=== PATIENT | female | born 1990 | race Caucasian/White ===

== ENCOUNTER 2018-08-02 15:20 | Emergency (ER) | payer BC, MEDICAID, OTHER ==
[~2018-08-02] VITALS: Ht 157.5 cm; Wt 61.2 kg
[2018-08-02 15:33] VITALS: BP_SYST 138
--- NOTE | 2018-08-02 15:33 | NUR ---
Placed in room 7. To gown for exam. Side rails up.
--- NOTE | 2018-08-02 15:35 | NUR ---
Patient to ER via triage for evaluation of bleeding after intercourse, patient also reports hematuria. Patient states she has lower abdominal cramping/pain. Patient states her LMP was 2-3 weeks ago, patient is awake, alert and oriented in no acute distres, vital signs stable, respirations even and unlabored, skin warm and dry to touch. Patient able to ambulate to bed 7 without difficulty with slow, steady gait. Family remains at bedside, awaiting evaluation by ER MD/[employer], will continue to observe and assess.
--- NOTE | 2018-08-02 15:42 | NUR ---
Tasneem Mc ICU CLERK at bedside to evaluate patient.
[2018-08-02] MEDS: KETOROLAC TROMETHAMINE 30 MG VIAL IVP ONE (16:11)
[2018-08-02] MEDS: ONDANSETRON HCL 4 MG/2 ML VIAL IVP ONE (16:15)
--- NOTE | 2018-08-02 16:15 | NUR ---
Pelvic exam performed by Tasneem Mc EXERCISE RIDER with myself at bedside for entire examination. Patient tolerated procedure . Patient assisted to position of comfort after examination.
[2018-08-02] MEDS: NACL 0.9% 1,000 ML IV ONE (16:19)
--- NOTE | 2018-08-02 16:25 | NUR ---
Pt off the unit for Ultrasound.
[2018-08-02 16:43] LABS: HEMATOCRIT 41.5 % (36-48); HEMOGLOBIN 13.6 g/dL (12.0-16.0); MEAN CORPUSCULAR HEMOGLOBIN 31 pg (27-31); MEAN CORPUSCULAR VOLUME 93 fL (79.0-98.0); RED BLOOD CELL COUNT(AUTO) 4.45 MIL/uL (4.2-6.2); WHITE BLOOD COUNT (AUTO) 7.4 K/uL (4.8-10.8)
[2018-08-02 16:44] LABS: BASOPHILS % (AUTO) 0.5 % (0.0-2.0); EOSINOPHILS # (AUTO) 0.1 K/uL (0.0-0.4); EOSINOPHILS % (AUTO) 1.1 % (0.0-4.0); LYMPHOCYTES # (AUTO) 1.8 K/uL (1.0-5.5); LYMPHOCYTES % (AUTO) 24.9 % (20.5-51.5); MEAN CORPUSCULAR HGB CONC 33 % (32-36); MONOCYTES # (AUTO) 0.6 K/uL (0.0-1.0); NEUTROPHILS # (AUTO) 4.9 K/uL (1.8-7.7); NEUTROPHILS % (AUTO) 65.5 % (40.0-70.0); PLATELET COUNT (AUTO) 244 K/uL (130-430); RED CELL DISTRIBUTION WIDTH 13.1 % (9.0-15.0)
[2018-08-02 16:45] LABS: CALCIUM 9.6 mg/dL (8.4-11.0); POTASSIUM 4.1 mmol/L (3.5-5.1)
[2018-08-02 16:46] LABS: ALBUMIN 4.2 g/dL (3.4-4.8); CREATININE 0.89 mg/dL (0.55-1.30); TOTAL BILIRUBIN 0.5 mg/dL (0.0-1.0)
[2018-08-02 18:00] VITALS: BP_SYST 132
--- NOTE | 2018-08-02 18:01 | NUR ---
Patient and pt's mother given written and verbal discharge instructions and verbalizes understanding. ER MD discussed with patient and pt's mother the results and treatment provided. Patient in stable condition. ID arm band removed. IV catheter removed intact and dressing applied, no active bleeding.No Rx given. Patient educated on pain management and to follow up with PMD. Pain Scale 2/10 tolerable for patient. Opportunity for questions provided and answered. Medication side effect fact sheet provided.
[2018-08-03 23:16] LABS: CHLAMYDIA TRACHOMATIS NAA Negative (Negative); NEISSERIA GONORRHOEAE NAA Negative (Negative)
== END 2018-08-02 18:01 | disposition home or self-care (01) ==
LOC: SED 15:20
DX: N83.202 Unspecified ovarian cyst, left side (principal); N83.201 Unspecified ovarian cyst, right side; N80.9 Endometriosis, unspecified; N93.8 Other specified abnormal uterine and vaginal bleeding; R03.0 Elevated blood-pressure reading, without diagnosis of hypertension
CPT/HCPCS: 36415; 76856; 80053; 81025; 83690; 84702; 85025; 87210; 87491; 87591; 96374; 96375; 99284; J1885; J2405; J7030

== ENCOUNTER 2019-02-02 22:40 | Emergency (ER) | payer OTHER ==
[~2019-02-02] VITALS: Ht 157.5 cm; Wt 59.0 kg
[2019-02-02 22:50] VITALS: BP_SYST 137
[2019-02-02] MEDS ORDERED: ALPRAZolam 0.25 MG TABLET PO ONE (23:45)
[2019-02-03 01:01] VITALS: BP_SYST 122
== END 2019-02-03 01:01 | disposition home or self-care (01) ==
LOC: SED 22:40
DX: F41.9 Anxiety disorder, unspecified (principal); F10.129 Alcohol abuse with intoxication, unspecified
CPT/HCPCS: 93005; 99284

== ENCOUNTER 2019-06-19 23:30 | Emergency (ER) | payer OTHER ==
[~2019-06-19] VITALS: Ht 157.5 cm; Wt 61.2 kg
[2019-06-19 23:50] VITALS: BP_SYST 149
--- NOTE | 2019-06-20 00:06 | NUR ---
Pt ambulatory to bed 6 for evaluation
--- NOTE | 2019-06-20 00:08 | NUR ---
ER at bedside examining patient.
[2019-06-20] MEDS ORDERED: MORPHINE 2 MG/ML INJ. SYRINGE IVP ONE (00:15)
[2019-06-20] MEDS ORDERED: ONDANSETRON HCL 4 MG/2 ML VIAL IVP ONE (00:15)
--- NOTE | 2019-06-20 00:20 | NUR ---
Pt BIB family to ED C/O intermittent shortness of breath and chest pain that has been worsening for the last 3 days. She describes the pain as pressure, sore, at the center of chest, and associated with intermittent shortness of breath. Denies past medical history and current medications. No other injuries and or complaints noted VSS no s/s of acute distress Resting on gurney rails up
[2019-06-20 00:43] LABS: BASOPHILS % (AUTO) 0.5 % (0.0-2.0); EOSINOPHILS # (AUTO) 0.1 K/uL (0.0-0.4); EOSINOPHILS % (AUTO) 0.7 % (0.0-4.0); HEMATOCRIT 36.5 % (36-48); HEMOGLOBIN 12.5 g/dL (12.0-16.0); LYMPHOCYTES % (AUTO) 23.5 % (20.5-51.5); MEAN CORPUSCULAR HEMOGLOBIN 32 pg (27-31); MEAN CORPUSCULAR HGB CONC 34 % (32-36); MEAN CORPUSCULAR VOLUME 94 fL (79.0-98.0); MONOCYTES # (AUTO) 0.8 K/uL (0.0-1.0); MONOCYTES % (AUTO) 9.5 % (1.7-9.3); NEUTROPHILS # (AUTO) 5.8 K/uL (1.8-7.7); NEUTROPHILS % (AUTO) 65.8 % (40.0-70.0); PLATELET COUNT (AUTO) 215 K/uL (130-430); RED BLOOD CELL COUNT(AUTO) 3.88 MIL/uL (4.2-6.2); RED CELL DISTRIBUTION WIDTH 14.7 % (9.0-15.0); WHITE BLOOD COUNT (AUTO) 8.7 K/uL (4.8-10.8)
[2019-06-20 00:57] LABS: CALCIUM 8.7 mg/dL (8.4-11.0); CREATININE 0.89 mg/dL (0.55-1.30); POTASSIUM 3.5 mmol/L (3.5-5.1)
--- NOTE | 2019-06-20 00:57 | NUR ---
Pt states, " I am not in any pain and I do not feel nausea or feel like I need throw up." I informed the pt we will just hold the morphine and zofran. REI RACHEL made aware.
[2019-06-20 01:10] LABS: TOTAL BILIRUBIN 0.3 mg/dL (0.0-1.0)
--- NOTE | 2019-06-20 02:00 | NUR ---
VSS no s/s of acute distress Resting on gurney rails up
--- NOTE | 2019-06-20 03:05 | NUR ---
Dr. Cowan bedside for Pt update
[2019-06-20] MEDS ORDERED: MORPHINE 2 MG/ML INJ. SYRINGE ONE (03:36)
[2019-06-20 04:10] VITALS: BP_SYST 149
--- NOTE | 2019-06-20 04:10 | NUR ---
Patient given written and verbal discharge instructions and verbalizes understanding. ER MD discussed with patient the results and treatment provided. Patient in stable condition. ID arm band removed. IV catheter removed intact and dressing applied, no active bleeding. Rx of [place] and Zofran given. Patient educated on pain management and to follow up with PMD. Pain Scale 0/10 Opportunity for questions provided and answered. Medication side effect fact sheet provided.
== END 2019-06-20 04:10 | disposition home or self-care (01) ==
LOC: SED 23:30
DX: R07.89 Other chest pain (principal); R06.02 Shortness of breath; F41.9 Anxiety disorder, unspecified
CPT/HCPCS: 36415; 71045; 80053; 81025; 82550; 83880; 84484; 84702; 85025; 85379; 93005 ×2; 96374; 99284; J2270